=== PATIENT | male | born 1955 | race Caucasian/White ===

== ENCOUNTER 2016-09-28 22:49 | Emergency (ER) | payer BC, OTHER ==
[2016-09-29] MEDS ORDERED: HYDROcod/ACET 5/325 Prepack 6 PO ONE ×2 (00:09→00:20)
[2016-09-29] MEDS ORDERED: CEPHALEXIN 250 MG CAPSULE PO STA (00:09)
[2016-09-29] MEDS ORDERED: IBUPROFEN 600 MG TABLET PO STA (00:09)
[2016-09-29] MEDS ORDERED: oxyCODONE/ACET 5/325 Prepack 4 PO ONE (00:18)
[2016-09-29] MEDS ORDERED: CEPHALEXIN 250 MG CAPSULE PO ONE (00:18)
[2016-09-29] MEDS ORDERED: IBUPROFEN 600 MG TABLET PO ONE (00:19)
== END 2016-09-29 00:26 | disposition home or self-care (01) ==
DX: K08.89 Other specified disorders of teeth and supporting structures (principal); I10 Essential (primary) hypertension; E11.9 Type 2 diabetes mellitus without complications; Z79.84 Long term (current) use of oral hypoglycemic drugs; Z79.82 Long term (current) use of aspirin; Z87.891 Personal history of nicotine dependence
CPT/HCPCS: 99282; 99283; A9270